=== PATIENT | male | born 1970 | race Caucasian/White ===

== ENCOUNTER 2021-09-26 21:41 | Emergency (ER) | payer SELFPAY ==
[~2021-09-26] VITALS: Ht 162.6 cm; Wt 72.0 kg
[2021-09-26 22:32] LABS: GLUCOSE,POINT OF CARE 123 MG/DL (70-110)
[2021-09-26 23:02] LABS: HEMATOCRIT 42.5 % (41-53); HEMOGLOBIN 14.9 g/dL (13.5-17.5); MEAN CORPUSCULAR HEMOGLOBIN 32.5 pg (26.0-34.0); MEAN CORPUSCULAR HGB CONC 35.1 G/dL (31.0-37.0); MEAN CORPUSCULAR VOLUME 93 fL (80-100); PLATELET COUNT (AUTO) 281 K/uL (150-450); RED BLOOD CELL COUNT(AUTO) 4.59 MIL/uL (4.50-5.90); RED CELL DISTRIBUTION WIDTH 13.2 % (11.5-14.5)
[2021-09-26 23:15] LABS: ANION GAP 13 mmol/L (8-16); CALCIUM, TOTAL 8.5 mg/dL (8.8-10.5); CARBON DIOXIDE 24 mmol/L (22-29); CHLORIDE 103 mmol/L (98-107); CREATININE 0.92 mg/dL (0.60-1.30); GLOMERULAR FILTR. RATE CALC > 60 mL/min (>60); GLUCOSE,RANDOM 116 mg/dL (70-110); POTASSIUM 3.7 mmol/L (3.5-5.1); SODIUM SERUM 140 mmol/L (136-145); UREA NITROGEN, BLOOD 4 mg/dL (7-18)
[2021-09-26 23:23] LABS: ALANINE AMINOTRANSFERASE 54 U/L (12-78); ALBUMIN 3.9 g/dL (3.4-5.0); ALKALINE PHOSPHATASE 73 U/L (46-116); ASPARTATE AMINOTRANSFERASE 45 U/L (15-37); BILIRUBIN,TOTAL 0.5 mg/dL (0.1-1.0); TOTAL PROTEIN, SERUM 7.4 g/dL (6.4-8.2)
[2021-09-26 23:44] LABS: AMPHET/METH SCREEN,URINE NEGATIVE (NEGATIVE); BARBITURATE SCREEN, URINE NEGATIVE (NEGATIVE); BENZODIAZEPINES SCREEN,URINE NEGATIVE (NEGATIVE); CANNABINOID SCREEN,URINE NEGATIVE (NEGATIVE); COCAINE SCREEN,URINE NEGATIVE (NEGATIVE); METHADONE SCREEN, URINE NEGATIVE (NEGATIVE); OPIATE SCREEN,URINE NEGATIVE (NEGATIVE)
[2021-09-26 23:48] LABS: BAND NEUTROPHILS % (MANUAL) 0 % (0-5)
[2021-09-26 23:49] LABS: PHENCYCLIDINE SCREEN,URINE NEGATIVE (NEGATIVE)
[2021-09-26 23:56] LABS: BASOPHILS % (MANUAL) 2 % (0-2); EOSINOPHILS % (MANUAL) 3 % (1-6); LYMPHOCYTES % (MANUAL) 43 % (22-44); MONOCYTES % (MANUAL) 9 % (2-9); REACTIVE LYMPHOCYTES 9 % (0-0); SEGMENTED NEUTROPHILS % 34 % (40-70)
[2021-09-26 23:58] LABS: PLATELET MORPHOLOGY COMMENT LARGE PLTS PRESENT
[2021-09-27 04:30] VITALS: BP 135/92
== END 2021-09-27 04:56 | disposition home or self-care (01) ==
LOC: EMS 21:42 → EDBD 21:42 → EMS 09-27 04:56
DX: F10.229 Alcohol dependence with intoxication, unspecified (principal); R45.6 Violent behavior; I10 Essential (primary) hypertension; E11.9 Type 2 diabetes mellitus without complications; Y90.8 Blood alcohol level of 240 mg/100 ml or more
CPT/HCPCS: 36415; 80053; 80307; 82962; 85025; 99285; G0480

== ENCOUNTER 2023-12-16 18:03 | Emergency (ER) | payer OTHER ==
[~2023-12-16] VITALS: Ht 167.6 cm; Wt 76.4 kg
[2023-12-16] MEDS ORDERED: SERT150C PO (18:27)
[2023-12-16] MEDS ORDERED: GABA-1181 PO (18:27)
[2023-12-16] MEDS ORDERED: LOSA-382 PO (18:27)
[2023-12-16] MEDS ORDERED: ATOR20TA65 PO (18:27)
[2023-12-16] MEDS ORDERED: NAPR-1025 PO (18:27)
[2023-12-16] MEDS ORDERED: ATEN-73 PO (18:38)
[2023-12-16] MEDS ORDERED: SERT-440 PO (18:38)
[2023-12-16] MEDS ORDERED: GABA600T10 PO (18:38)
[2023-12-16] MEDS ORDERED: PANT40TA54 PO (18:38)
[2023-12-16] MEDS ORDERED: METF-1211 PO (18:38)
[2023-12-16 20:11] LABS: BASOPHILS % (AUTO) 0.8 % (0.0-2.0); EOSINOPHILS % (AUTO) 3.3 % (1.0-6.0); HEMATOCRIT 41.5 % (41-53); HEMOGLOBIN 14.5 g/dL (13.5-17.5); LYMPHOCYTES # (AUTO) 1.1 K/uL (1.0-4.8); MEAN CORPUSCULAR HEMOGLOBIN 31.5 pg (26.0-34.0); MEAN CORPUSCULAR HGB CONC 34.9 G/dL (31.0-37.0); MEAN CORPUSCULAR VOLUME 90 fL (80-100); MONOCYTES # (AUTO) 0.5 K/uL (0.1-1.0); NEUTROPHILS # (AUTO) 5.8 K/uL (1.8-7.7); NEUTROPHILS % (AUTO) 74.9 % (40.0-70.0); PLATELET COUNT (AUTO) 219 K/uL (150-450); WHITE BLOOD COUNT (AUTO) 7.7 K/uL (4.5-11.0)
[2023-12-16 20:22] LABS: ANION GAP 13 mmol/L (8-16); CALCIUM, TOTAL 8.9 mg/dL (8.8-10.5); CARBON DIOXIDE 24 mmol/L (22-29); CHLORIDE 100 mmol/L (98-107); CREATININE 1.08 mg/dL (0.60-1.30); GLOMERULAR FILTR. RATE CALC > 60 mL/min (>60); GLUCOSE,RANDOM 165 mg/dL (70-110); POTASSIUM 3.5 mmol/L (3.5-5.1); SODIUM SERUM 137 mmol/L (136-145); UREA NITROGEN, BLOOD 15 mg/dL (7-18)
[2023-12-16 20:26] LABS: TROPONIN I-HIGH SENSITIVITY 7 ng/L (<76)
[2023-12-16 20:33] LABS: CREATINE KINASE, TOTAL ONLY 215 U/L (39-308)
[2023-12-16 20:38] LABS: ALCOHOL, BLOOD (SERUM) < 3 mg/dL (0-10)
[2023-12-16 21:04] VITALS: BP 112/78; PULSE 89; RESP 16; TEMP 98.2
[2023-12-16] MEDS ORDERED: NALO4SPR NASAL (21:48)
== END 2023-12-16 21:50 | disposition home or self-care (01) ==
LOC: EMS 18:04
DX: T65.91XA Toxic effect of unspecified substance, accidental (unintentional), initial encounter (principal); Y92.89 Other specified places as the place of occurrence of the external cause; F15.10 Other stimulant abuse, uncomplicated
CPT/HCPCS: 99285; 71045; 80048; 82550; 84484; 85025; 93005; G0480